=== PATIENT | male | born 1990 | race Caucasian/White ===

== ENCOUNTER 2021-01-02 13:51 | Day surgery (SDC) | payer BC ==
--- NOTE | 2021-01-02 13:54 | EDM.PDOC ---
ED HPI GENERAL MEDICAL PROBLEM - General Chief Complaint: ENT Problem Stated Complaint: FOOD STUCK IN THROAT Time Seen by Provider: 01/02/21 13:53 Source of Information: Reports: Patient History Limitations: Reports: No Limitations - History of Present Illness INITIAL COMMENTS - FREE TEXT/NARRATIVE: HISTORY AND PHYSICAL: History of present illness: The patient is a 26-year-old male who presents with complaints of unable to swallow his saliva or any fluids after eating a piece of brisket 24 hours ago. He feels as if the brisket is stuck in his throat. He denies shortness of breath. He is able to speak clearly and in sentences. His last food intake was noon on January 01 and he did attempt to drink today but was unable to. Patient states he had a similar experience 4 years ago in [place] after eating a piece of steak and retrieval was required at that time. He also had a similar experience at age 16. While he states he had an EGD 4 years ago he has never had esoph ageal stretching. He reports that he requires " a lot" of fluids during meals to aid in swallowing. Patient denies any fever, chills, headache, change in vision, syncope or near syncope. Denies any chest pain, back pain, shortness of breath or cough. Denies any abdominal pain, nausea, vomiting, diarrhea, constipation or dysuria. Patient has been eating and drinking appropriately. Review of systems: As per history of present illness and below otherwise all systems reviewed and negative. Past medical history: As per history of present illness and as reviewed below otherwise noncontributor y. Surgical history: As per history of present illness and as reviewed below otherwise noncontributory. Social history: See social history for further information Family history: As per history of present illness and as reviewed below otherwise noncontributory. Physical exam: General: Well developed and well nourished. Alert and orientated x 3. Nontoxic in appearance and in no acute distress. Vital signs are stable and have been reviewed by me. Nursing notes were reviewed. HEENT: Atraumatic, normocephalic, pupils equal and reactive bilaterally, negative for conjunctival pallor or scleral icterus, mucous membranes moist, TMs normal bilaterally, throat clear, neck supple, nontender, trachea midline. No trismus noted. No meningeal signs. No hot potato voice noted. Unable to swallow saliva. Lungs: Clear to auscultation bilaterally. No wheezes, rales, or rhonchi. Chest nontender. Normal work of breathing, no accessory muscles used. Heart: S1S2, regular rate and rhythm without overt murmur, gallops, or rubs. No JVD. No peripheral edema Abdomen: Soft, nondistended, nontender. Normoactive bowel sounds. Negative for masses or costovertebral tenderness. Skin: Intact, warm, dry. No lesions or rashes noted. Hematologic: No petechiae or purpra. Mucosa appropriate color and normal nail bed color and refill. Extremities: Atraumatic, moves all extremities per self without difficulty or deficits, negative for cords or calf pain. Neurovascular unremarkable. Neuro: Awake, alert, oriented. Cranial nerves II through XII unremarkable. Cerebellum unremarkable. Motor and sensory unremarkable throughout. Exam nonfocal. Psychiatric: Mood and affect are appropriate. Normal thought process. Answering questions appropriately. Notes: *This patient was seen and evaluated during the 2019 SARS-CoV-2 novel coronavirus pandemic period. Community viral transmission is ongoing at time of this encounter and the emergency department is operating under pandemic response procedures. After an exam and discussion with patient, he is agreeable to an IV, labs, glucagon 1 mg per IV, sipping on Coke to see if food bolus is relieved. Patient with a history of HIV, he states non-detectable at this time, and Hx. of asthma. Post 30 minutes of Glucagon the patient attempted several sips of coke without success. Patient is in no distress. His vitals are stable. General surgery, Dr. Chun paged. Dr. Chun consulted and will coming to see the patient. Dr. Chun ordered second dose of Glucagon 1mg IV. COVID negative, WBC 12.77, BUN 21, Creatine 1.4 and glucose 68 (pre glucagon). Dr. Chun in to see patient and will take the patient for an EGD. I have talked with the patient about today's findings, in addition to providing specific details for plan of care. Reassessment at the time of disposition de monstrates that the patient is in no acute distress. The patient is stable for discharge, counseling was provided and we discussed in great detail signs and symptoms that would prompt them to return to the Emergency Department. Medication, follow up and supportive care measures were reviewed and discussed. Voices understanding and is agreeable to plan of care. Denies any further questions or concerns at this time. Diagnostics: CBC, CMP, COVID Therapeutics: Glucagon 1 mg, Glucagon 1mg Impression: Ingested foreign body Plan: Same day surgery for EGD retrieval of foreign body impaction. Definitive disposition and diagnosis as appropriate pending reevaluation and review of above. Throat Pain Score (Numeric/FACES): 4 - Related Data Allergies Allergy/AdvReac Type Severity Reaction Status Date / Time diphenhydramine Allergy Cannot Verified 01/02/21 14:08 [From Benadryl] Remember Home Meds: Home Meds Albuterol [Proventil ER] 1 puff INH ASDIRECTED 01/02/21 [History] Dolutegravir Sodium [Tivicay] 1 tab PO DAILY 01/02/21 [History] Emtricitabine/Tenofov Alafenam [Descovy 200-25 mg Tablet] 1 tab PO DAILY 01/02/21 [History] Montelukast [Singulair] 1 tab PO DAILY 01/02/21 [History] ED ROS ENT - Review of Systems Review Of Systems: Comprehensive ROS is negative, except as noted in HPI. ED EXAM, ENT - Physical Exam Exam: See Below (See dictation) Course - Vital Signs Last Recorded V/S: Last Vital Signs Temp 98.1 F 01/02/21 14:09 Pulse 75 01/02/21 15:05 Resp 16 01/02/21 15:05 BP 112/65 01/02/21 15:05 Pulse Ox 97 01/02/21 15:05 - Orders/Labs/Meds Orders: Active Orders 24 hr Category Date Time Status Sodium Chloride 0.9% [Saline Flush] Med 01/02/21 14:18 Active 10 ml FLUSH ASDIRECTED PRN Sodium Chloride 0.9% [Saline Flush] Med 01/02/21 14:18 Active 2.5 ml FLUSH ASDIRECTED PRN Saline Lock Insert [OM.PC] Stat Oth 01/02/21 14:18 Ordered Medication Orders Sodium Chloride (Sodium Chloride 0.9% 10 Ml Syringe) 10 ml FLUSH ASDIRECTED PRN PRN Reason: Keep Vein Open Last Admin: 01/02/21 14:40 Dose: 10 ml Documented by: [id number] Sodium Chloride (Sodium Chloride 0.9% 2.5 Ml Syringe) 2.5 ml FLUSH ASDIRECTED PRN PRN Reason: Keep Vein Open Last Admin: 01/02/21 14:42 Dose: 2.5 ml Documented by: [id number] Labs: Laboratory Tests 01/02/21 01/02/21 01/02/21 Range/Units 14:28 14:30 14:30 WBC 12.77 H (4.0-11.0) K/uL RBC 5.05 (4.50-5.90) M/uL Hgb 15.8 (13.0-17.0) g/dL Hct 46.2 (38.0-50.0) % MCV 91.5 (80.0-98.0) fL MCH 31.3 (27.0-32.0) pg MCHC 34.2 (31.0-37.0) g/dL RDW Std Deviation 42.4 (28.0-62.0) fl RDW Coeff of Bandar 13 (11.0-15.0) % Plt Count 249 (150-400) K/uL MPV 9.20 (7.40-12.00) fL Neut % (Auto) 78.7 (48.0-80.0) % Lymph % (Auto) 12.5 L (16.0-40.0) % [place] % (Auto) 7.6 (0.0-15.0) % Eos % (Auto) 1.1 (0.0-7.0) % Baso % (Auto) 0.1 (0.0-1.5) % Neut # (Auto) 10.1 H (1.4-5.7) K/uL Lymph # (Auto) 1.6 (0.6-2.4) K/uL [place] # (Auto) 1.0 H (0.0-0.8) K/uL Eos # (Auto) 0.1 (0.0-0.7) K/uL Baso # (Auto) 0.0 (0.0-0.1) K/uL Nucleated RBC % 0.0 /100WBC Nucleated RBCs # 0 K/uL Sodium 142 (136-148) mmol/L Potassium 3.8 (3.5-5.1) mmol/L Chloride 105 (98-107) mmol/L Carbon Dioxide 24.5 (21.0-32.0) mmol/L BUN 21 H (7.0-18.0) mg/dL Creatinine 1.4 H (0.8-1.3) mg/dL Est Cr Clr Drug Dosing 90.52 mL/min Estimated GFR (MDRD) 59.9 ml/min Glucose 68 L (74-106) mg/dL Calcium 9.5 (8.5-10.1) mg/dL Total Bilirubin 1.1 H (0.2-1.0) mg/dL AST 20 (15-37) IU/L ALT 35 (14-63) IU/L Alkaline Phosphatase 65 (46-116) U/L Total Protein 8.1 (6.4-8.2) g/dL Albumin 4.6 (3.4-5.0) g/dL Globulin 3.5 (2.6-4.0) g/dL Albumin/Globulin Ratio 1.3 (0.9-1.6) SARS-CoV-2 RNA (DANG) NEGATIVE (NEGATIVE) Meds: Medications Generic Name Dose Route Start Last Admin Trade Name Freq PRN Reason Stop Dose Admin Sodium Chloride 10 ml 01/02/21 14:18 01/02/21 14:40 Sodium Chloride 0.9% 10 Ml Syringe FLUSH 10 ml ASDIRECTED PRN Administration Keep Vein Open Sodium Chloride 2.5 ml 01/02/21 14:18 01/02/21 14:42 Sodium Chloride 0.9% 2.5 Ml Syringe FLUSH 2.5 ml ASDIRECTED PRN Administration Keep Vein Open Discontinued Medications Generic Name Dose Route Start Last Admin Trade Name Freq PRN Reason Stop Dose Admin Glucagon 1 mg 01/02/21 14:19 01/02/21 14:36 Glucagon,Human Recombinant 1 Mg Vial IVPUSH 01/02/21 14:20 1 mg ONETIME STA Administration Glucagon 1 mg 01/02/21 15:30 01/02/21 15:50 Glucagon,Human Recombinant 1 Mg Vial IVPUSH 01/02/21 15:31 1 mg ONETIME STA Administration Departure - Departure Time of Disposition: 15:59 Disposition: Admitted As Inpatient 67 Condition: Good Clinical Impression: Foreign body in esophagus - Discharge Information *PRESCRIPTION DRUG MONITORING PROGRAM REVIEWED*: Not Applicable *COPY OF PRESCRIPTION DRUG MONITORING REPORT IN PATIENT KARLENE: Not Applicable Referrals: PCP,None [Primary Care Provider] - Forms: ED Department Discharge Sepsis Event Note (ED) - Focused Exam Vital Signs: Vital Signs Temp Pulse Resp BP Pulse Ox 01/02/21 15:05 75 16 112/65 97 01/02/21 14:09 98.1 F 90 18 138/73 96 - My Orders Last 24 Hours: My Active Orders 01/02/21 14:18 Sodium Chloride 0.9% [Saline Flush] 10 ml FLUSH ASDIRECTED PRN Sodium Chloride 0.9% [Saline Flush] 2.5 ml FLUSH ASDIRECTED PRN Saline Lock Insert [OM.PC] Stat - Assessment/Plan Last 24 Hours: My Active Orders 01/02/21 14:18 Sodium Chloride 0.9% [Saline Flush] 10 ml FLUSH ASDIRECTED PRN Sodium Chloride 0.9% [Saline Flush] 2.5 ml FLUSH ASDIRECTED PRN Saline Lock Insert [OM.PC] Stat
[2021-01-02] MEDS ORDERED: Sodium Chloride 0.9% 2.5 ML Syringe FLUSH PRN (14:18)
[2021-01-02] MEDS ORDERED: Glucagon,Human Recombinant 1 MG Vial IVPUSH STA ×2 (14:19→15:30)
[2021-01-02] MEDS: Sodium Chloride 0.9% 10 ML Syringe FLUSH PRN ×2 (14:40→15:53)
[2021-01-02 15:14] LABS: CARBON DIOXIDE,CO2 24.5 mmol/L (21.0-32.0); POTASSIUM,K 3.8 mmol/L (3.5-5.1)
--- NOTE | 2021-01-02 16:18 | PCM.PREANE ---
Preanesthetic Assessment - Anesthesia/Transfusion/Family Hx Anesthesia History: Prior Anesthesia Without Reaction Family History of Anesthesia Reaction: No - Review of Systems General: No Symptoms Pulmonary: No Symptoms Cardiovascular: No Symptoms Gastrointestinal: No Symptoms Neurological: No Symptoms Other: Reports: None - Physical Assessment NPO Status Date: 01/02/21 NPO Status Time: 01:00 Vital Signs: Last Vital Signs Temp 98.1 F 01/02/21 14:09 Pulse 75 01/02/21 15:05 Resp 16 01/02/21 15:05 BP 112/65 01/02/21 15:05 Pulse Ox 97 01/02/21 15:05 Height: 6 ft 2 in Weight: 185 lb ASA Class: 2E Mental Status: Alert & Oriented x3 Airway Class: Mallampati = 2 Dentition: Reports: Normal Dentition ROM/Head Extension: Full Lungs: Clear to Auscultation, Normal Respiratory Effort Cardiovascular: Regular Rate, Regular Rhythm - Lab Values: Laboratory Last Values WBC 12.77 K/uL (4.0-11.0) H 01/02/21 14:30 RBC 5.05 M/uL (4.50-5.90) 01/02/21 14:30 Hgb 15.8 g/dL (13.0-17.0) 01/02/21 14:30 Hct 46.2 % (38.0-50.0) 01/02/21 14:30 MCV 91.5 fL (80.0-98.0) 01/02/21 14:30 MCH 31.3 pg (27.0-32.0) 01/02/21 14:30 MCHC 34.2 g/dL (31.0-37.0) 01/02/21 14:30 RDW Std Deviation 42.4 fl (28.0-62.0) 01/02/21 14:30 RDW Coeff of Bandar 13 % (11.0-15.0) 01/02/21 14:30 Plt Count 249 K/uL (150-400) 01/02/21 14:30 MPV 9.20 fL (7.40-12.00) 01/02/21 14:30 Neut % (Auto) 78.7 % (48.0-80.0) 01/02/21 14:30 Lymph % (Auto) 12.5 % (16.0-40.0) L 01/02/21 14:30 [place] % (Auto) 7.6 % (0.0-15.0) 01/02/21 14:30 Eos % (Auto) 1.1 % (0.0-7.0) 01/02/21 14:30 Baso % (Auto) 0.1 % (0.0-1.5) 01/02/21 14:30 Neut # (Auto) 10.1 K/uL (1.4-5.7) H 01/02/21 14:30 Lymph # (Auto) 1.6 K/uL (0.6-2.4) 01/02/21 14:30 [place] # (Auto) 1.0 K/uL (0.0-0.8) H 01/02/21 14:30 Eos # (Auto) 0.1 K/uL (0.0-0.7) 01/02/21 14:30 Baso # (Auto) 0.0 K/uL (0.0-0.1) 01/02/21 14: Nucleated RBC % 0.0 /100WBC 01/02/21 14:30 Nucleated RBCs # 0 K/uL 01/02/21 14:30 Sodium 142 mmol/L (136-148) 01/02/21 14:30 Potassium 3.8 mmol/L (3.5-5.1) 01/02/21 14:30 Chloride 105 mmol/L (98-107) 01/02/21 14:30 Carbon Dioxide 24.5 mmol/L (21.0-32.0) 01/02/21 14:30 BUN 21 mg/dL (7.0-18.0) H 01/02/21 14:30 Creatinine 1.4 mg/dL (0.8-1.3) H 01/02/21 14:30 Est Cr Clr Drug Dosing 90.52 mL/min 01/02/21 14:30 Estimated GFR (MDRD) 59.9 ml/min 01/02/21 14:30 Glucose 68 mg/dL (74-106) L 01/02/21 14:30 Calcium 9.5 mg/dL (8.5-10.1) 01/02/21 14:30 Total Bilirubin 1.1 mg/dL (0.2-1.0) H 01/02/21 14:30 AST 20 IU/L (15-37) 01/02/21 14:30 ALT 35 IU/L (14-63) 01/02/21 14:30 Alkaline Phosphatase 65 U/L (46-116) 01/02/21 14:30 Total Protein 8.1 g/dL (6.4-8.2) 01/02/21 14:30 Albumin 4.6 g/dL (3.4-5.0) 01/02/21 14:30 Globulin 3.5 g/dL (2.6-4.0) 01/02/21 14:30 Albumin/Globulin Ratio 1.3 (0.9-1.6) 01/02/21 14:30 SARS-CoV-2 RNA (DANG) NEGATIVE (NEGATIVE) 01/02/21 14:28 - Allergies Allergies/Adverse Reactions: Allergies Allergy/AdvReac Type Severity Reaction Status Date / Time diphenhydramine Allergy Cannot Verified 01/02/21 14:08 [From Guillaume] Remember - Anesthesia Plan Pre-Op Medication Ordered: None - Acknowledgements Anesthesia Type Planned: General Anesthesia Pt an Appropriate Candidate for the Planned Anesthesia: Yes Alternatives and Risks of Anesthesia Discussed w Pt/Guardian: Yes Pt/Guardian Understands and Agrees with Anesthesia Plan: Yes Additional Comments: unable to eat or drink since 1100 yesterday. Thinks food stuck in esophagus hx HIV pos test neg last 5 years asthma daily inhlaers no cv problems par no questions PreAnesthesia Questionnaire Respiratory History: Reports: Asthma - Infectious Disease History Infectious Disease History: Reports: HIV-Human Immunodeficiency Virus - SUBSTANCE USE Tobacco Use Status *Q: Never Tobacco User Recreational Drug Use History: No - HOME MEDS Home Medications: Home Meds Albuterol [Proventil ER] 1 puff INH ASDIRECTED 01/02/21 [History] Dolutegravir Sodium [Tivicay] 1 tab PO DAILY 01/02/21 [History] Emtricitabine/Tenofov Alafenam [Descovy 200-25 mg Tablet] 1 tab PO DAILY 01/02/21 [History] Montelukast [Singulair] 1 tab PO DAILY 01/02/21 [History] - CURRENT (IN HOUSE) MEDS Current Meds: Current Medications Sodium Chloride (Sodium Chloride 0.9% 10 Ml Syringe) 10 ml FLUSH ASDIRECTED PRN PRN Reason: Keep Vein Open Last Admin: 01/02/21 15:53 Dose: 10 ml Documented by: Sodium Chloride (Sodium Chloride 0.9% 2.5 Ml Syringe) 2.5 ml FLUSH ASDIRECTED PRN PRN Reason: Keep Vein Open Last Admin: 01/02/21 14:42 Dose: 2.5 ml Documented by: Discontinued Medications Glucagon (Glucagon,Human Recombinant 1 Mg Vial) 1 mg IVPUSH ONETIME STA Stop: 01/02/21 14:20 Last Admin: 01/02/21 14:36 Dose: 1 mg Documented by: Glucagon (Glucagon,Human Recombinant 1 Mg Vial) 1 mg IVPUSH ONETIME STA Stop: 01/02/21 15:31 Last Admin: 01/02/21 15:50 Dose: 1 mg Documented by:
[2021-01-02] MEDS ORDERED: Lactated Ringers 1,000 ML IV SCH (16:30)
[2021-01-02] MEDS ORDERED: Midazolam 1 MG/ML 2 ML SDV ONE (16:48)
[2021-01-02] MEDS ORDERED: fentaNYL 100 MCG/2 ML SDV ONE (16:48)
[2021-01-02] MEDS ORDERED: Propofol 200 MG/20 ML SDV ONE (16:48)
[2021-01-02] MEDS ORDERED: Rocuronium Bromide 50 MG/5 ML Syringe ONE (16:50)
[2021-01-02] MEDS ORDERED: Dexamethasone 4 MG/ML 5 ML MDV ONE (16:50)
[2021-01-02] MEDS ORDERED: Succinylcholine/Sod PF 100 MG/5 ML SYRINGE IV ONE (16:50)
[2021-01-02] MEDS ORDERED: Lidocaine 2% 5 ML SDV ONE (16:50)
[2021-01-02] MEDS ORDERED: Ondansetron 4 MG/2 ML SDV ONE (16:50)
--- NOTE | 2021-01-02 16:51 | PCM.SN.2 ---
- Free Text/Narrative Note: pt seen, chart reviewed; food stuck; would benefit from timely egd w fb extraction; rb dw pt including, but not limited to, bleeding/infection/perforation/postop course; and likely stay overnight because of general anesthesia; pt concurred and proceed w egd w fb extraction; see [id number]
--- NOTE | 2021-01-02 18:47 | PCM.OPNOTE ---
- General Post-Op/Procedure Note Date of Surgery/Procedure: 01/02/21 Operative Procedure(s): egd w fb extraction Findings: see [id number] Pre Op Diagnosis: food stuck Post-Op Diagnosis: Same Anesthesia Technique: General ET Tube Primary Surgeon: Ermias Chun Complications: None Condition: Stable
[2021-01-02] MEDS ORDERED: Morphine 2 MG/ML SYRINGE IVPUSH PRN (18:48)
[2021-01-02] MEDS ORDERED: Acetaminophen/oxyCODONE 325-5 MG Tab PO PRN (18:51)
[2021-01-02] MEDS ORDERED: Pantoprazole 40 MG in Sodium Chloride 0.9% 10 ML IV SCH (19:00)
--- NOTE | 2021-01-02 19:17 | PCM.POSTAN ---
POST ANESTHESIA ASSESSMENT - MENTAL STATUS Mental Status: Alert, Oriented - VITAL SIGNS Vital Signs: Last Vital Signs Temp 36.7 C 01/02/21 14:09 Pulse 96 01/02/21 19:14 Resp 14 01/02/21 19:14 BP 133/76 01/02/21 19:14 Pulse Ox 95 01/02/21 19:14 - RESPIRATORY Respiratory Status: Respiratory Rate WNL, Airway Patent, O2 Saturation Stable - CARDIOVASCULAR CV Status: Pulse Rate WNL, Blood Pressure Stable - GASTROINTESTINAL GI Status: No Symptoms - POST OP HYDRATION Hydration Status: Adequate & Stable
[2021-01-02] MEDS ORDERED: Benzocaine/Cetylpyridinium/Menthol Lozenge MUCMEM PRN (19:31)
--- NOTE | 2021-01-03 06:43 | CONS ---
DATE OF CONSULTATION: 01/02/2021 DATE OF : 1990 PRIMARY CARE PHYSICIAN: None PCP This is a consult from the emergency room provider, Roma Blanton. CONSULTING QUESTION: Food stuck. HISTORY OF PRESENT ILLNESS: The patient is a 30 years old young gentleman, appropriately built, and HIV positive for five years, complained of 1-1/2 day situation of food stuck in the throat. Nothing goes through. The patient is from [place]. The patient now seen in emergency room and got 2 mg of IV glucagon and does not any results. Surgery was then consulted. The patient remarked, he had a similar experience at age 16. Also EGD four years ago for food retrieval. PAST MEDICAL HISTORY: Significant for denying diabetic, RI, CVA, hypertension. The patient has HIV for five years and is being followed by HIV doctor. ALLERGIES: Please refer to nursing for details. MEDICATION: Please refer to nursing for details. PAST SURGICAL HISTORY: No abdominal surgery. Had EGD at least two times. FAMILY HISTORY: Noncontributory. SOCIAL HISTORY: The patient is a current daily smoker. PHYSICAL EXAMINATION: GENERAL: A very pleasant gentleman, very polite, smiled to the doctor, in no acute distress. HEENT: Normocephalic and atraumatic. Sclerae are anicteric. LUNGS: Clear to auscultation. HEART: Regular rate and rhythm. ABDOMEN: Soft and nondistended. No pulsating tender midline abdominal structure. No surgical scar. No hernia appreciated. Nontender. IMPRESSION: Food stuck in the throat, nothing get through for more than 1-1/2 day, probably would benefit from EGD with possible foreign body extraction. Risks and benefits discussed with the patient including bleeding, infection, and perforation, and probably a postop cause soft throat due to multiple in and out. The patient concurred to proceed with surgical plan. LO / JACQUE /[id number]
--- NOTE | 2021-01-03 07:52 | OR ---
SURGEON: Ermias Chun MD DATE OF PROCEDURE: 01/02/2021 PREOPERATIVE DIAGNOSIS: Food stuck. POSTOPERATIVE DIAGNOSIS: Food stuck. PROCEDURE PERFORMED: Esophagogastroduodenoscopy with foreign body extraction. PRIMARY SURGEON: Ermias Chun MD COMPLICATIONS: None. FINDING: A very large piece of meat at least something close to about 4 x 2 cm stuck in the GE junction requiring multiple passes in order to get it out. DESCRIPTION OF PROCEDURE: The patient was taken to operating room and placed in the supine position. Upon induction of general endotracheal anesthesia, a bite block was placed in the mouth and a well-lubricated Olympus gastroscope was gently inserted through the mouth into the oropharynx down to the esophagus. Immediately encountered a puddle that suggested that it was totally shut and even water stayed there. After sucking out the water, I noticed a piece of meat over there and using the instrument jaw, I was able to pull out a piece, but I was not able to pull the whole thing out. So, I pulled out a piece, took it out, and then put back the gastroscope and picked out another piece and put it out and did another one and this was repeated more than probably about six to 10 times. Then, the whole piece fell into the stomach. The scope going to the stomach, did not see any bleeding or any inflammation, but the GE junction is quite inflamed. going into the duodenum to take a peek, and retroflexed to look at the fundus of stomach. Throughout the whole study, the scope was very tight. It believe it was due to the edema from the food stuck. I sucked out the gas while scope pulling out. POSTOP PLAN: The patient will be admitted for pain management as multiple passes can make the throat a very sore throat and if all goes well, probably would stay tomorrow and day after tomorrow and the patient will be on only full liquid diet and on omeprazole, and depending on his progress, the patient may go home the next day or more likely the day after the next day because of pain management. As always, thank you for your kind referral. LO / JACQUE /[id number] MAC
== END 2021-01-02 22:30 | disposition home or self-care (01) ==
LOC: MW.ED 13:51 → MW.SDS 16:13 → MW.ICU 19:03 → MW.SDS 22:30
PROVIDERS: ATTEND Surgery
DX: T18.128A Food in esophagus causing other injury, initial encounter (principal); B20 Human immunodeficiency virus [HIV] disease; F17.200 Nicotine dependence, unspecified, uncomplicated; Z79.899 Other long term (current) drug therapy; Z01.812 Encounter for preprocedural laboratory examination; Z20.822 Contact with and (suspected) exposure to COVID-19
CPT/HCPCS: 36415; 43247; 80053; 85025; 87635; A9270; C9113; J0330; J1100; J1610; J2250; J2405; J2704; J3010; J7120; 00731; 96361; 96374; 96376; 99283; 99284-25; U0002